=== PATIENT | male | born 1950 | race Caucasian/White ===

== ENCOUNTER → 2018-10-12 | Outpatient (CLI) | payer MEDICARE, OTHER | END | disposition home or self-care (01) | LOC: HKI 16:03 | DX: M79.662 Pain in left lower leg (principal); M54.5 Low back pain; M25.552 Pain in left hip; I49.9 Cardiac arrhythmia, unspecified; F17.290 Nicotine dependence, other tobacco product, uncomplicated | CPT/HCPCS: 72100; 73502 ==